=== PATIENT | female | born 1995 | race Two or more races ===

== ENCOUNTER 2017-10-30 00:23 | Inpatient (IN) | payer OTHER ==
[2017-10-30 02:02] LABS: ADD MAN DIFF? NO
[2017-10-30 02:11] LABS: BASOPHILS % 0.2 % (0.0-2.0); EOSINOPHILS # 0.1 10^3/ul (0.0-0.5); EOSINOPHILS % 0.8 % (0.0-7.0); HEMATOCRIT 42.2 % (37.0-47.0); HEMOGLOBIN 13.9 g/dl (12.0-16.0); LYMPHOCYTES # 2.7 10^3/ul (0.8-2.9); LYMPHOCYTES % 15.2 % (18.0-55.0); MEAN CORPUSCULAR HEMOGLOBIN 28.6 pg (29.0-33.0); MEAN CORPUSCULAR HGB CONC 32.9 g/dl (32.0-37.0); MEAN CORPUSCULAR VOLUME 86.8 fl (72.0-104.0); MEAN PLATELET VOLUME 10.1 fl (7.4-10.4); MONOCYTE # 1.1 10^3/ul (0.3-0.9); NEUTROPHIL # 13.7 10^3/ul (1.6-7.5); NEUTROPHILS % 77.3 % (30.0-74.0); PLATELET COUNT 323 10^3/UL (140-415); RED BLOOD COUNT 4.86 10^6/ul (4.20-5.40); RED CELL DISTRIBUTION WIDTH 12.5 % (11.5-14.5)
[2017-10-30 02:11] LABS: WHITE BLOOD COUNT 17.8 10^3/ul (4.8-10.8)
[2017-10-30 02:21] LABS: ALANINE AMINOTRANSFERASE 19 IU/L (13-69); ALBUMIN 4.1 g/dl (3.3-4.9); ALBUMIN/GLOBULIN RATIO 1.13; ALKALINE PHOSPHATASE 96 IU/L (42-121); ANION GAP 15 (8-16); ASPARTATE AMINO TRANSFERASE 16 IU/L (15-46); BILIRUBIN,INDIRECT 0.6 mg/dl (0-1.1); BILIRUBIN,TOTAL 0.6 mg/dl (0.2-1.3); BLOOD UREA NITROGEN 15 mg/dl (7-20); CARBON DIOXIDE 31 mmol/L (21-31); CHLORIDE 103 mmol/L (97-110); CREATININE 0.93 mg/dl (0.44-1.00); GLUCOSE 100 mg/dl (70-220); POTASSIUM 3.6 mmol/L (3.5-5.1); SODIUM 145 mmol/L (135-144); TOTAL PROTEIN 7.7 g/dl (6.1-8.1)
[2017-10-30] MEDS ORDERED: NACL 0.9% 3 ML SYG IV (03:30)
[2017-10-30] MEDS: HYDROCODONE/APAP (5/325) TAB PO (03:43)
[2017-10-30] MEDS: SOD CHLORIDE 0.45% 1,000 ML IV ×3 (03:43→21:58)
[2017-10-30] MEDS ORDERED: AMPICILLIN/SULB 3 GM/NS (PMX) 100 ML IVPB (04:01)
[2017-10-30] MEDS: AMPICILLIN/SULB 3 GM/NS (PMX) 100 ML IVPB (08:08)
[2017-10-30] MEDS ORDERED: VANCOMYCIN IV PER PHARMACY XX (12:00)
[2017-10-30] MEDS: VANCOMYCIN 1.75 GM in SOD CHLORIDE 0.9% 500 ML IVPB (13:44)
[2017-10-30] MEDS: KETOROLAC 15 MG INJ IV (15:10)
[2017-10-30] MEDS ORDERED: PROPOFOL 20 ML (18:57)
[2017-10-30] MEDS ORDERED: MEPERIDINE 100 MG INJ (18:57)
[2017-10-30] MEDS ORDERED: LIDOCAINE 2% (SDV) 5 ML INJ (18:57)
[2017-10-30] MEDS ORDERED: MIDAZOLAM 1 MG/ML 2 ML INJ IV (19:00)
[2017-10-30] MEDS ORDERED: FENTAnyl 50 MCG/ML VIAL IV ×3 (19:00)
[2017-10-30] MEDS ORDERED: METOCLOPRAMIDE 10 MG INJ IV (19:00)
[2017-10-30] MEDS ORDERED: DIPHENHYDRAMINE 50 MG INJ IV (19:00)
[2017-10-30] MEDS ORDERED: EPHEDrine SULFATE 50 MG/5 ML SYG IV (19:00)
[2017-10-30] MEDS ORDERED: HYDROmorphONE (0.2 MG/ML) 10ML SYG IV ×2 (19:00)
[2017-10-30] MEDS ORDERED: LABETALOL HCL 20MG INJ IV (19:00)
[2017-10-30] MEDS ORDERED: hydrALAzine 20 MG INJ IV (19:00)
[2017-10-30] MEDS ORDERED: MEPERIDINE 25 MG INJ IV (19:00)
[2017-10-30] MEDS ORDERED: ONDANSETRON 4 MG INJ IV (19:00)
[2017-10-30] MEDS ORDERED: OXYCODONE/ACETAMINOPHEN (5/325) TAB PO ×2 (19:00)
[2017-10-30] MEDS ORDERED: METOCLOPRAMIDE 10 MG INJ (19:14)
[2017-10-30] MEDS ORDERED: ONDANSETRON 4 MG INJ (19:14)
[2017-10-30] MEDS: HYDROmorphONE (0.2 MG/ML) 10ML SYG IV (20:25)
[2017-10-30] MEDS: VANCOMYCIN 750 MG in DEXTROSE 5% 150 ML IVPB (23:52)
[2017-10-31] MEDS: KETOROLAC 15 MG INJ IV (04:54)
[2017-10-31 04:55] LABS: ADD MAN DIFF? NO; BASOPHILS % 0.1 % (0.0-2.0); EOSINOPHILS # 0.1 10^3/ul (0.0-0.5); EOSINOPHILS % 0.8 % (0.0-7.0); HEMATOCRIT 40.3 % (37.0-47.0); HEMOGLOBIN 13.1 g/dl (12.0-16.0); LYMPHOCYTES # 1.6 10^3/ul (0.8-2.9); LYMPHOCYTES % 9.2 % (18.0-55.0); MEAN CORPUSCULAR HEMOGLOBIN 28.5 pg (29.0-33.0); MEAN CORPUSCULAR HGB CONC 32.5 g/dl (32.0-37.0); MEAN CORPUSCULAR VOLUME 87.6 fl (72.0-104.0); MEAN PLATELET VOLUME 10.2 fl (7.4-10.4); MONOCYTE # 0.7 10^3/ul (0.3-0.9); NEUTROPHIL # 15.2 10^3/ul (1.6-7.5); NEUTROPHILS % 85.5 % (30.0-74.0); PLATELET COUNT 305 10^3/UL (140-415); RED CELL DISTRIBUTION WIDTH 12.6 % (11.5-14.5)
[2017-10-31 04:55] LABS: WHITE BLOOD COUNT 17.8 10^3/ul (4.8-10.8)
[2017-10-31 05:11] LABS: PHOSPHORUS 4.3 mg/dl (2.5-4.9)
[2017-10-31 05:11] LABS: CHOL/HDL RATIO 3.5 RATIO; CHOLESTEROL 105 mg/dl (100-200); HDL CHOLESTEROL 30 mg/dl (33-83); LDL CHOLESTEROL,CALCULATED 63 mg/dl; MAGNESIUM 1.7 mg/dl (1.7-2.5); TRIGLYCERIDES 61 mg/dl (0-149)
[2017-10-31 05:13] LABS: HEMOGLOBIN A1C 5.3 % (0-5.9)
[2017-10-31 05:13] LABS: ALANINE AMINOTRANSFERASE 24 IU/L (13-69); ALBUMIN 3.2 g/dl (3.3-4.9); ALBUMIN/GLOBULIN RATIO 1.03; ALKALINE PHOSPHATASE 88 IU/L (42-121); ANION GAP 12 (8-16); ASPARTATE AMINO TRANSFERASE 15 IU/L (15-46); BILIRUBIN,INDIRECT 1.5 mg/dl (0-1.1); BILIRUBIN,TOTAL 1.5 mg/dl (0.2-1.3); BLOOD UREA NITROGEN 13 mg/dl (7-20); CALCIUM 8.6 mg/dl (8.4-10.2); CARBON DIOXIDE 28 mmol/L (21-31); CHLORIDE 105 mmol/L (97-110); CREATININE 0.68 mg/dl (0.44-1.00); GLUCOSE 86 mg/dl (70-220); SODIUM 141 mmol/L (135-144); TOTAL PROTEIN 6.3 g/dl (6.1-8.1)
[2017-10-31 05:26] LABS: FREE T4 (FREE THYROXINE) 1.33 ng/dl (0.79-2.35)
[2017-10-31 05:41] LABS: THYROID STIMULATING HORMONE 0.533 MIU/L (0.465-4.680)
[2017-10-31] MEDS: VANCOMYCIN 750 MG in DEXTROSE 5% 150 ML IVPB ×2 (08:32→16:49)
[2017-10-31] MEDS: SOD CHLORIDE 0.45% 1,000 ML IV ×2 (08:34→18:15)
[2017-10-31] MEDS: morphine 2 MG INJ IV ×2 (10:39→21:25)
[2017-10-31] MEDS ORDERED: ONDANSETRON 4 MG INJ IV (11:00)
[2017-10-31] MEDS: HYDROCODONE/APAP (5/325) TAB PO (14:45)
[2017-10-31 16:40] LABS: VANCOMYCIN,TROUGH 5.8 ug/ml (10.0-20.0)
[2017-10-31] MEDS ORDERED: BISACODYL (EC) 5 MG TAB PO (17:30)
[2017-10-31] MEDS: POLYETHYLENE GLYCOL 17 GM PACKET PO (20:22)
[2017-10-31] MEDS: DOCUSATE SODIUM 100 MG CAP PO (20:22)
[2017-10-31] MEDS: VANCOMYCIN 1.25 GM in SOD CHLORIDE 0.9% 250 ML IVPB (21:32)
[2017-11-01] MEDS: SOD CHLORIDE 0.45% 1,000 ML IV ×2 (01:27→13:40)
[2017-11-01] MEDS: VANCOMYCIN 1.25 GM in SOD CHLORIDE 0.9% 250 ML IVPB ×2 (05:35→13:23)
[2017-11-01 05:45] LABS: ADD MAN DIFF? NO
[2017-11-01 06:10] LABS: BASOPHILS % 0.2 % (0.0-2.0); EOSINOPHILS # 0.2 10^3/ul (0.0-0.5); EOSINOPHILS % 1.9 % (0.0-7.0); HEMATOCRIT 37.3 % (37.0-47.0); HEMOGLOBIN 12.2 g/dl (12.0-16.0); LYMPHOCYTES # 2.7 10^3/ul (0.8-2.9); LYMPHOCYTES % 21.6 % (18.0-55.0); MEAN CORPUSCULAR HEMOGLOBIN 28.9 pg (29.0-33.0); MEAN CORPUSCULAR HGB CONC 32.7 g/dl (32.0-37.0); MEAN CORPUSCULAR VOLUME 88.4 fl (72.0-104.0); MEAN PLATELET VOLUME 10.4 fl (7.4-10.4); MONOCYTE # 1.1 10^3/ul (0.3-0.9); MONOCYTES % 8.8 % (0.0-13.0); NEUTROPHIL # 8.3 10^3/ul (1.6-7.5); PLATELET COUNT 290 10^3/UL (140-415); RED BLOOD COUNT 4.22 10^6/ul (4.20-5.40); RED CELL DISTRIBUTION WIDTH 12.5 % (11.5-14.5)
[2017-11-01 06:10] LABS: WHITE BLOOD COUNT 12.4 10^3/ul (4.8-10.8)
[2017-11-01 06:31] LABS: MAGNESIUM 1.6 mg/dl (1.7-2.5)
[2017-11-01 06:31] LABS: PHOSPHORUS 4.2 mg/dl (2.5-4.9)
[2017-11-01 06:34] LABS: ANION GAP 13 (8-16); BLOOD UREA NITROGEN 13 mg/dl (7-20); CALCIUM 8.6 mg/dl (8.4-10.2); CARBON DIOXIDE 29 mmol/L (21-31); CHLORIDE 102 mmol/L (97-110); CREATININE 0.66 mg/dl (0.44-1.00); GLUCOSE 117 mg/dl (70-220); POTASSIUM 3.6 mmol/L (3.5-5.1); SODIUM 140 mmol/L (135-144)
[2017-11-01] MEDS: DOCUSATE SODIUM 100 MG CAP PO (08:14)
[2017-11-01] MEDS: POLYETHYLENE GLYCOL 17 GM PACKET PO (08:14)
[2017-11-01] MEDS: morphine 2 MG INJ IV (09:57)
[2017-11-01] MEDS: MAGNESIUM OXIDE 400 MG TAB PO (10:39)
== END 2017-11-01 17:10 | disposition home or self-care (01) | DRG 872 ==
LOC: MS1 00:23
PROC: 0H9U0ZZ Drainage of Left Breast, Open Approach (ICD-10-PCS; principal; 2017-10-30 18:55)
DX: A41.9 Sepsis, unspecified organism (principal); N61.1 Abscess of the breast and nipple; E66.9 Obesity, unspecified; Z68.35 Body mass index [BMI] 35.0-35.9, adult
CPT/HCPCS: 80048; 80053; 80061; 80202; 83036; 83735; 84100; 84439; 84443; 85025; 87070; 87075; 87102